=== PATIENT | female | born 1985 | race Two or more races ===

== ENCOUNTER 2021-06-12 06:23 | Emergency (ER) | payer OTHER ==
[~2021-06-12] VITALS: Ht 165.1 cm; Wt 68.0 kg
--- NOTE | 2021-06-12 06:42 | NUR ---
BIBS C/O RIGHT FOOD PAIN WHILE PLAYING SOCCER. PATIENT ALERT ANDORIENTED X3. AMBULATORY WITH NON LABORED BREATHING IN BED 03 AWAITING MD DOUGLASS.
--- NOTE | 2021-06-12 07:53 | NUR ---
CALLED RADIOLOGY TO FOLLOW UP XRAY RESULT.
--- NOTE | 2021-06-12 08:10 | NUR ---
SEKOU WRAP APPLIED TO R FOOT.
[2021-06-12 08:14] VITALS: BP 120/64
== END 2021-06-12 08:14 | disposition home or self-care (01) ==
LOC: ER 06:34
DX: S90.31XA Contusion of right foot, initial encounter (principal); J45.909 Unspecified asthma, uncomplicated; W51.XXXA Accidental striking against or bumped into by another person, initial encounter; Y93.66 Activity, soccer; Y92.832 Beach as the place of occurrence of the external cause; Y99.8 Other external cause status
CPT/HCPCS: 73630-TC

== ENCOUNTER 2023-09-13 07:09 | Emergency (ER) | payer OTHER ==
[~2023-09-13] VITALS: Ht 165.1 cm; Wt 67.1 kg
[2023-09-13] MEDS ORDERED: DICY10CA37 PO (07:43)
[2023-09-13 08:01] LABS: PREGNANCY TEST URINE QUAL POSITIVE (NEGATIVE)
[2023-09-13 09:26] LABS: BASOPHILS % (AUTO) 0.5 % (0.0-2.0); EOSINOPHILS % (AUTO) 0.6 % (0.0-6.0); HEMATOCRIT 41 % (33-45); HEMOGLOBIN 13.7 g/dL (11.5-14.8); LYMPHOCYTES # (AUTO) 1.2 K/uL (0.8-4.8); LYMPHOCYTES % (AUTO) 19.5 % (20.0-44.0); MEAN CORPUSCULAR HEMOGLOBIN 30 PG (26.0-33.0); MEAN CORPUSCULAR HGB CONC 34 g/dl (31.0-36.0); MEAN CORPUSCULAR VOLUME 90 fL (82-100); MONOCYTES # (AUTO) 0.6 K/uL (0.1-1.30); MONOCYTES % (AUTO) 9.6 % (2.0-12.0); NEUTROPHILS # (AUTO) 4.2 K/uL (1.8-8.9); NEUTROPHILS % (AUTO) 69.8 % (43.0-81.0); PLATELET COUNT (AUTO) 361 K/uL (150-450); RED BLOOD CELL COUNT(AUTO) 4.53 MIL/uL (4.0-5.2); RED CELL DISTRIBUTION WIDTH 12.9 % (11.5-15.0); WHITE BLOOD COUNT (AUTO) 6.1 K/uL (4.3-11.0)
[2023-09-13 09:35] LABS: CALCIUM, SERUM 9.1 mg/dL (8.5-10.1); CREATININE 0.8 mg/dL (0.6-1.3); POTASSIUM 3.8 mmol/L (3.5-5.1)
[2023-09-13 10:36] VITALS: BP 122/67; TEMP 98.5; O2SAT 100
== END 2023-09-13 10:38 | disposition home or self-care (01) ==
LOC: ER 07:18
DX: O26.891 Other specified pregnancy related conditions, first trimester (principal); R10.2 Pelvic and perineal pain; R10.33 Periumbilical pain; J45.909 Unspecified asthma, uncomplicated; Z3A.01 Less than 8 weeks gestation of pregnancy
CPT/HCPCS: 36415; 76805-TC; 80048-TC; 84702-TC; 84703-TC; 85025-TC